=== PATIENT | female | born 1955 | race African-American/Black ===

== ENCOUNTER 2016-09-11 11:23 | Emergency (ER) | payer OTHER ==
[~2016-09-11] VITALS: Ht 160 cm; Wt 95.3 kg
[2016-09-11] MEDS ORDERED: DICLOFENAC NA 1% (12:19)
[2016-09-11] MEDS ORDERED: DICL1GEL3 TD (12:19)
[2016-09-11] MEDS ORDERED: DULO1CAP2 PO (12:24)
[2016-09-11] MEDS ORDERED: LIDO2JELLY TOP (12:24)
[2016-09-11] MEDS ORDERED: HYDR25T PO (12:24)
[2016-09-11] MEDS ORDERED: TRAM50TA2 PO (12:24)
[2016-09-11] MEDS ORDERED: ERGO500014 PO (12:24)
[2016-09-11] MEDS ORDERED: METF750T PO (12:24)
[2016-09-11] MEDS ORDERED: ASPIRIN 81 MG CHEW TABLET PO ONE (12:45)
[2016-09-11 13:06] LABS: BASO % 0.6 % (0.0-1.0); EOS # 0.1 K/mm3 (0.0-0.50); LARGE UNSTAINED CELL # 0.1 K/mm3 (0.0-0.4); LARGE UNSTAINED CELL % 1.3 % (0.0-4.0); LYMPH # 1.3 K/mm3 (1.5-4.5); LYMPH % 29.9 % (24.0-44.0); MEAN CORPUSCULAR HEMOGLOBIN 28.8 pg (27.0-33.0); MONO # 0.3 K/mm3 (0.0-0.8); MONO % 7.3 % (0.0-5.0); NEUTROPHILS # 2.4 K/mm3 (1.8-7.7); NEUTROPHILS % 57.9 % (36.0-66.0); PLATELET COUNT, AUTOMATED 223 k/mm3 (150-450); RED CELL DISTRIBUTION WIDTH 12.9 % (11.5-14.5); WHITE BLOOD COUNT 4.2 K/mm3 (4.0-10.0)
[2016-09-11 13:07] LABS: ANION GAP 5 MEQ/L (8-16); BLOOD UREA NITROGEN 19 MG/DL (7-18); CALCIUM LEVEL 9.2 MG/DL (8.5-10.1); CARBON DIOXIDE LEVEL 27 MEQ/L (21-32); CHLORIDE LEVEL 109 MEQ/L (98-107); CREATININE FOR GFR 1.04 MG/DL (0.55-1.02); GLOMERULAR FILTRATION RATE 57.7 (>51); GLUCOSE, FASTING 95 MG/DL (70-105); POTASSIUM SERUM 4.2 MEQ/L (3.5-5.1); SODIUM LEVEL 141 MEQ/L (136-145)
[2016-09-11 13:14] VITALS: BP 95/64
--- NOTE | 2016-09-11 13:58 | REP ---
PORTABLE CHEST, SINGLE VIEW: No comparison. There is no evidence of acute infiltrate. No pleural effusion is seen. The heart is normal in size. The mediastinal silhouette is unremarkable. The visualized osseous structures are intact. IMPRESSION: No acute pulmonary disease. Signed by Edu Lopez MD 09/11/2016 04:40 P
--- NOTE | 2016-09-12 21:34 | ECGEPIP ---
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
== END 2016-09-11 14:14 | disposition home or self-care (01) ==
LOC: EDBD 11:23 → M ED 13:44
DX: R07.89 Other chest pain (principal); I25.10 Atherosclerotic heart disease of native coronary artery without angina pectoris; E11.9 Type 2 diabetes mellitus without complications; Z79.899 Other long term (current) drug therapy; Z79.84 Long term (current) use of oral hypoglycemic drugs

== ENCOUNTER 2016-09-17 05:25 | Emergency (ER) | payer OTHER ==
[~2016-09-17] VITALS: Ht 160 cm; Wt 93.4 kg
[~2016-09-17 05:25] MED LIST: DICL1GEL3 TD; DICLOFENAC NA 1%; DULO1CAP2 PO; ERGO500014 PO; HYDR25T PO; LIDO2JELLY TOP; METF750T PO; TRAM50TA2 PO
[2016-09-17 06:28] LABS: INR 0.95
[2016-09-17 06:41] LABS: ALBUMIN 3.5 GM/DL (3.2-5.2); ALBUMIN/GLOBULIN RATIO 0.92 (1.00-1.93); ALKALINE PHOSPHATASE 116 U/L (45-117); ALT/SGPT 36 U/L (12-78); ANION GAP 10 MEQ/L (8-16); AST/SGOT 27 U/L (15-37); BILIRUBIN,DIRECT < 0.1 MG/DL (0.0-0.2); BILIRUBIN,TOTAL 0.3 MG/DL (0.2-1.0); BLOOD UREA NITROGEN 12 MG/DL (7-18); CALCIUM LEVEL 8.7 MG/DL (8.5-10.1); CARBON DIOXIDE LEVEL 24 MEQ/L (21-32); CHLORIDE LEVEL 109 MEQ/L (98-107); CREATININE FOR GFR 0.93 MG/DL (0.55-1.02); FREE T4 1.11 NG/DL (0.76-1.46); GLOMERULAR FILTRATION RATE > 60.0 (>51); GLUCOSE, FASTING 101 MG/DL (70-105); POTASSIUM SERUM 4.7 MEQ/L (3.5-5.1); SODIUM LEVEL 143 MEQ/L (136-145); TOTAL PROTEIN 7.3 GM/DL (6.4-8.2)
--- NOTE | 2016-09-17 10:18 | REP ---
Chest x-ray: Two views. HISTORY: Hypertension and chest pain. Comparison chest x-rays from a 09/11/2016. FINDINGS: EKG monitoring electrodes overlie the chest. There is tenting of the left hemidiaphragm as before. No pleural effusion is seen. No infiltrate or pneumothorax is seen. There is a healing or healed fracture involving the left posterior 6th rib unchanged. The heart is not enlarged. IMPRESSION: No active cardiopulmonary disease. Signed by Len Sharma MD 09/17/2016 11:49 A
[2016-09-17] MEDS ORDERED: ASPI1TAB PO (12:40)
[2016-09-17 12:54] VITALS: BP 109/66
[2016-09-17] MEDS ORDERED: ASPIRIN 325 MG TAB PO ONE (13:00)
--- NOTE | 2016-09-17 14:40 | ECGEPIP ---
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
== END 2016-09-17 13:07 | disposition home or self-care (01) ==
LOC: M ED 06:37
DX: R07.9 Chest pain, unspecified (principal); E11.9 Type 2 diabetes mellitus without complications; I10 Essential (primary) hypertension; Z82.49 Family history of ischemic heart disease and other diseases of the circulatory system; R94.31 Abnormal electrocardiogram [ECG] [EKG]; Z79.82 Long term (current) use of aspirin; Z79.899 Other long term (current) drug therapy; Z88.8 Allergy status to other drugs, medicaments and biological substances